=== PATIENT | male | born 1970 ===

== ENCOUNTER 2025-01-04 18:44 | Emergency (ER) | payer SELFPAY | END 2025-01-04 20:02 | disposition home or self-care (01) | LOC: CSHERS 18:44 | DX: S01.511A Laceration without foreign body of lip, initial encounter (principal); I10 Essential (primary) hypertension; W55.22XA Struck by cow, initial encounter; Y92.009 Unspecified place in unspecified non-institutional (private) residence as the place of occurrence of the external cause | CPT/HCPCS: 99282 ==